=== PATIENT | female | born 1985 | race Caucasian/White ===

== ENCOUNTER 2025-05-27 14:10 | Inpatient (IN) | payer OTHER | END 2025-05-30 13:55 | disposition home or self-care (01) | DRG 785 | LOC: FBCO 14:10 → FBC 15:30 | PROVIDERS: ADMIT Obstetrics & Gynecology | PROC: 10D00Z1 Extraction of Products of Conception, Low, Open Approach (ICD-10-PCS; principal; 2025-05-27) | PROC: 0UB70ZZ Excision of Bilateral Fallopian Tubes, Open Approach (ICD-10-PCS; 2025-05-27) | PROC: 10D00Z1 Extraction of Products of Conception, Low, Open Approach (ICD-10-PCS; 2025-05-27) | DX: O13.4 Gestational [pregnancy-induced] hypertension without significant proteinuria, complicating childbirth (principal); Z37.0 Single live birth; Z3A.38 38 weeks gestation of pregnancy; O99.62 Diseases of the digestive system complicating childbirth; O99.214 Obesity complicating childbirth; K42.9 Umbilical hernia without obstruction or gangrene ==

== ENCOUNTER 2025-06-06 12:00 | Observation (INO) | payer OTHER ==
[2025-06-06 13:10] LABS: MCH 27.1 PG (25.6-32.2); MCHC 31.7 g/dL (32.2-35.5); MCV 85.7 fL (79.4-94.8); RBC 3.98 M/uL (3.93-5.22)
[2025-06-06 13:26] LABS: ALT (SGPT) 134.0 U/L (14-59); AST (SGOT) 75.0 U/L (15-37); GLOMERULAR FILTRATION RATE,EST 113.0 mL/min (>60); LACTATE DEHYDROGENASE 231.0 U/L (81-234); PROTEIN, TOTAL 7.8 g/dL (6.4-8.2); UREA NITROGEN 18.0 mg/dL (7-18)
[2025-06-06 14:22] LABS: PROTEIN, RANDOM URINE 23.0 mg/dL (NOT ESTABLISHED)
[2025-06-06] MEDS ORDERED: CALCIUM GLUCONATE 1,000 MG/10 ML VIAL IV PRN (15:00)
[2025-06-06] MEDS ORDERED: LACTATED RINGER'S 1,000 ML IV SCH (15:00)
[2025-06-06] MEDS ORDERED: MAGNESIUM SULFATE 4 GM/100 ML BAG IV ONE (15:00)
[2025-06-06] MEDS ORDERED: MAGNESIUM SULFATE 500 ML IV SCH (15:00)
[2025-06-06] MEDS ORDERED: MAGNESIUM SULFATE 2 GM/50 ML BAG IV ONE (15:15)
[2025-06-06] MEDS ORDERED: IBUPROFEN 800 MG TAB PO PRN (16:00)
[2025-06-06] MEDS ORDERED: GABAPENTIN 300 MG CAP PO SCH ×2 (17:15→21:00)
[2025-06-06 21:24] LABS: BASOPHILS 0.3 % (0.1-1.2); EOSINOPHILS 0 % (0.7-5.8); LYMPHOCYTES 26.0 % (19.3-51.7); MCH 27.5 PG (25.6-32.2); MCHC 32.1 g/dL (32.2-35.5); MCV 85.6 fL (79.4-94.8); MONOCYTES 6.7 % (4.7-12.5); NEUTROPHILS 66.4 % (34.0-71.1); RBC 3.75 M/uL (3.93-5.22)
[2025-06-06 21:28] LABS: ALT (SGPT) 127.0 U/L (14-59); AST (SGOT) 75.0 U/L (15-37); GLOMERULAR FILTRATION RATE,EST 114.0 mL/min (>60); PROTEIN, TOTAL 7.2 g/dL (6.4-8.2); UREA NITROGEN 14.0 mg/dL (7-18)
[2025-06-07 05:31] LABS: BASOPHILS 0.4 % (0.1-1.2); EOSINOPHILS 0 % (0.7-5.8); LYMPHOCYTES 22.0 % (19.3-51.7); MCH 27.3 PG (25.6-32.2); MCHC 32.2 g/dL (32.2-35.5); MCV 84.9 fL (79.4-94.8); MONOCYTES 7.1 % (4.7-12.5); NEUTROPHILS 70.3 % (34.0-71.1); RBC 3.77 M/uL (3.93-5.22)
[2025-06-07 05:49] LABS: ALT (SGPT) 143.0 U/L (14-59); AST (SGOT) 99.0 U/L (15-37); GLOMERULAR FILTRATION RATE,EST 114.0 mL/min (>60); PROTEIN, TOTAL 7.3 g/dL (6.4-8.2); UREA NITROGEN 13.0 mg/dL (7-18)
[2025-06-07 08:12] VITALS: BP 133/73
[2025-06-07] MEDS ORDERED: HYDROCODONE/ACETA 5/325 TAB PO PRN (08:45)
[2025-06-07] MEDS ORDERED: NIFEdipine XL 30 MG TAB PO SCH (09:00)
[2025-06-07 13:19] LABS: BASOPHILS 0.3 % (0.1-1.2); EOSINOPHILS 0 % (0.7-5.8); LYMPHOCYTES 23.6 % (19.3-51.7); MCH 27.1 PG (25.6-32.2); MCHC 31.7 g/dL (32.2-35.5); MCV 85.6 fL (79.4-94.8); MONOCYTES 4.7 % (4.7-12.5); NEUTROPHILS 71.0 % (34.0-71.1); RBC 3.95 M/uL (3.93-5.22)
[2025-06-07 13:34] LABS: ALT (SGPT) 151.0 U/L (14-59); AST (SGOT) 97.0 U/L (15-37); GLOMERULAR FILTRATION RATE,EST 107.0 mL/min (>60); PROTEIN, TOTAL 7.4 g/dL (6.4-8.2); UREA NITROGEN 10.0 mg/dL (7-18)
== END 2025-06-07 20:46 | disposition home or self-care (01) ==
LOC: FBCO 12:00 → FBC 12:42 → FBCO 15:00 → FBC 15:00
PROVIDERS: ADMIT Obstetrics & Gynecology; ATTEND Obstetrics & Gynecology
PROC: 3E0R3GC Introduction of Other Therapeutic Substance into Spinal Canal, Percutaneous Approach (ICD-10-PCS; principal; 2025-06-07)
DX: O89.4 Spinal and epidural anesthesia-induced headache during the puerperium (principal); O14.95 Unspecified pre-eclampsia, complicating the puerperium; Z88.5 Allergy status to narcotic agent; Z88.8 Allergy status to other drugs, medicaments and biological substances
CPT/HCPCS: 36415; 62273; 80053; 82565; 82570; 83615; 83735; 84156; 84550; 85025; 85027; 96365; 96366; 96376; A9270; G0378; G0463; J3475; J7121